=== PATIENT | female | born 1940 | race Caucasian/White ===

== ENCOUNTER 2017-07-04 10:33 | Emergency (ER) | payer MEDICARE ==
--- NOTE | 2017-07-04 11:03 | REP ---
CT Head without contrast HISTORY: Infarction COMPARISON: None Areas of decreased attenuation are present in the periventricular white matter. This represents small-vessel ischemic disease. There is no intraparenchymal hemorrhage or infarct. The ventricular system and cortical sulci are dilated consistent with minimal volume loss. There is no extra cerebral collection. 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 There is extension into the left middle cranial fossa with mild mass effect on the anterior left temporal lobe. There is extension into the roof of the left orbit. There is no midline shift. There is no fracture. The visualized sinuses are clear. IMPRESSION: 1. Small vessel ischemic disease. 2. Minimal volume loss. 3. Left greater sphenoid wing intraosseous meningioma. Mild Signed by Florentino Vasquez MD 07/04/2017 10:54 A
[2017-07-04 11:13] LABS: BASO % 1.1 % (0.0-1.0); EOS # 0.1 K/mm3 (0.0-0.50); EOS % 3.2 % (0.0-3.0); LARGE UNSTAINED CELL # 0.1 K/mm3 (0.0-0.4); LYMPH # 1.2 K/mm3 (1.5-4.5); LYMPH % 35.6 % (24.0-44.0); MEAN CORPUSCULAR HEMOGLOBIN 30.8 pg (27.0-33.0); MEAN CORPUSCULAR HGB CONC 32.9 g/dl (32.0-36.5); MEAN CORPUSCULAR VOLUME 93.5 fl (80.0-96.0); MONO # 0.3 K/mm3 (0.0-0.8); MONO % 7.9 % (0.0-5.0); NEUTROPHILS # 1.6 K/mm3 (1.8-7.7); NEUTROPHILS % 49.2 % (36.0-66.0); PLATELET COUNT, AUTOMATED 207 k/mm3 (150-450); RED CELL DISTRIBUTION WIDTH 12.6 % (11.5-14.5); WHITE BLOOD COUNT 3.3 K/mm3 (4.0-10.0)
--- NOTE | 2017-07-04 11:13 | REP ---
Portable chest, 10:56 a.m., single AP view, patient sitting: There are no comparisons. There are numerous surgical clips in the left axilla. The left breast shadow is absent suggesting mastectomy. The lung hanna are clear. Cardiac size is normal. The erik, mediastinum, and bony thorax are unremarkable except for a small bone cyst in the right frontal head. Impression: No acute cardiopulmonary findings. Signed by Josh Craig MD 07/04/2017 11:05 A
[2017-07-04 11:16] LABS: INR 0.99
[2017-07-04 11:33] LABS: ANION GAP 8 MEQ/L (8-16); BLOOD UREA NITROGEN 10 MG/DL (7-18); CARBON DIOXIDE LEVEL 26 MEQ/L (21-32); CHLORIDE LEVEL 109 MEQ/L (98-107); CREATININE FOR GFR 0.87 MG/DL (0.55-1.02); GLOMERULAR FILTRATION RATE > 60.0 (>39); GLUCOSE, FASTING 81 MG/DL (83-110); SODIUM LEVEL 143 MEQ/L (136-145)
[2017-07-04] MEDS ORDERED: CALCTAB74 PO (11:38)
[2017-07-04 12:24] VITALS: BP 139/68
--- NOTE | 2017-07-04 19:53 | ECGEPIP ---
Stationary ECG Study [facility] - ED Test Date: 2017-07-04 Pat Name: WILY WILLS Department: Room: - Gender: F Job Hand: benjy : 1940 Requested By: Francisco Ojeda Order Number: [id number] Reading MD: Francisco Ojeda Measurements Intervals [place] Rate: 60 P: 66 [place]: 153 QRS: 10 QRSD: 86 T: 20 QT: 425 QTc: 427 Interpretive Statements SINUS RHYTHM LOW QRS VOLTAGE IN EXTREMITY LEADS NONSPECIFIC ST T WAVE CHANGES DELAYED RWP Electronically Signed On 07-04-2017 19:53:01 EDT by Francisco Ojeda
== END 2017-07-04 12:30 | disposition short-term general hospital (02) ==
LOC: M ED 10:33 → EDBD 10:33 → M ED 12:30
DX: I63.9 Cerebral infarction, unspecified (principal); Z79.899 Other long term (current) drug therapy; Z88.6 Allergy status to analgesic agent; Z88.0 Allergy status to penicillin; Z88.8 Allergy status to other drugs, medicaments and biological substances; Z91.89 Other specified personal risk factors, not elsewhere classified

== ENCOUNTER → 2018-08-25 | Outpatient (CLI) | payer MEDICARE | LOC: M WUC 11:39 | DX: M54.31 Sciatica, right side (principal); M51.36 Other intervertebral disc degeneration, lumbar region | CPT/HCPCS: 72110 ==